=== PATIENT | male | born 1970 | race Caucasian/White ===

== ENCOUNTER 2025-02-03 06:16 | Day surgery (SDC) | payer BC, SELFPAY ==
[2025-02-03 07:14] LABS: Glucose - Point of Care 191 mg/dl (70-99)
== END 2025-02-03 08:33 | disposition home or self-care (01) ==
LOC: GI 06:16
PROVIDERS: ATTENDING PHYSICIAN Internal Medicine Gastroenterology
DX: Z12.11 Encounter for screening for malignant neoplasm of colon (principal); K51.00 Ulcerative (chronic) pancolitis without complications; K51.40 Inflammatory polyps of colon without complications; K64.8 Other hemorrhoids
CPT/HCPCS: 45385; 45380; 88305; 82962